=== PATIENT | female | born 1945 | race Caucasian/White ===

== ENCOUNTER → 2016-08-05 | Outpatient (CLI) | payer OTHER, MEDICARE ==
[~2016-08-05] MED LIST: ACET-1311 PO; ASPCH81X PO; ATOR-22 PO; CALC500C70 PO; COEN10CA5 PO; DOXY100C76 PO; LEVO100T7 PO; OMEG10007 PO; TPRSR/50 PO
--- NOTE | 2016-08-05 08:58 | DIAGNOSTIC IMAGING REPORT ---
CHEST 2 VIEWS ROUTINE CLINICAL HISTORY: Pulmonary nodule COMPARISON STUDY: 05/11/2016, CT scan dated 05/11/2016 FINDINGS: There are postsurgical changes of a midline sternotomy. There is no failure. There is no focal pulmonary consolidation. Heart is at the upper limits of normal in size. There is been resolution of previous identified bilateral pleural effusions. An opacity at the level the left cardiophrenic angle, is felt to represent a summation of fat pad and atelectatic change[ IMPRESSION: No active disease in the chest. Electronically signed by: Johnnie Byrd M.D. 08/05/2016 8:56 AM Dictated Date/Time: 08/05/2016 8:55 AM
== END | disposition home or self-care (01) ==
LOC: C.RAD1850 08:47
PROVIDERS: ATTEND Internal Medicine Interventional Cardiology
DX: R91.1 Solitary pulmonary nodule (principal)

== ENCOUNTER → 2016-08-05 | Outpatient (CLI) | payer OTHER, MEDICARE | END | disposition home or self-care (01) | LOC: C.MAMM 07:39 | PROVIDERS: ATTEND Nurse Practitioner Family | DX: Z00.00 Encounter for general adult medical examination without abnormal findings (principal); Z78.0 Asymptomatic menopausal state; M85.851 Other specified disorders of bone density and structure, right thigh; M85.852 Other specified disorders of bone density and structure, left thigh; R91.1 Solitary pulmonary nodule ==

== ENCOUNTER 2016-11-09 18:20 | Emergency (ER) | payer OTHER, MEDICARE ==
[~2016-11-09] VITALS: Ht 162.6 cm; Wt 57.4 kg
[~2016-11-09 18:20] MED LIST changes: -COEN10CA5 PO; -DOXY100C76 PO
[2016-11-09 18:27] VITALS: TEMP 36.9; Ht 162.6 cm; Wt 57.4 kg
[2016-11-09 19:01] LABS: BASO % 0.4 %; BASO ABS # 0.01 K/uL (0-0.2); COMPLETE YES; HEMATOCRIT 43.8 % (37-47); LYMPH % 35.8 %; LYMPH ABS # 1.02 K/uL (1.2-3.4); MEAN CELL VOLUME 89.6 fL (80-100); MEAN CORPUSCULAR HEMOGLOBIN 30.9 pg (25-34); MEAN CORPUSCULAR HGB CONC 34.5 g/dl (32-36); MEAN PLATELET VOLUME 10.3 fL (7.4-10.4); MONO % 9.1 %; NEUT % 54.7 %; PLATELET COUNT 111 K/uL (130-400); RED BLOOD COUNT 4.89 M/uL (4.2-5.4); WHITE BLOOD COUNT 2.85 K/uL (4.8-10.8)
[2016-11-09 19:16] LABS: BUN/CREATININE RATIO 23.1 (10-20); CALCIUM 8.9 mg/dl (8.5-10.1); CREATININE 0.77 mg/dl (0.60-1.20); MAGNESIUM 2.2 mg/dl (1.8-2.4); POTASSIUM 3.4 mmol/L (3.5-5.1)
[2016-11-09 19:19] LABS: ALB/GLOB RATIO 0.9 (0.9-2)
[2016-11-09] MEDS ORDERED: COEN10CA5 PO (19:32)
[2016-11-09 19:34] LABS: URINE APPEARANCE CLEAR (CLEAR); URINE BILIRUBIN NEG (NEG); URINE COLOR DK YELLOW; URINE EPITHELIAL CELL AUTO >30 /lpf (0-5); URINE NITRITE NEG (NEG); URINE SPECIFIC GRAVITY 1.023 (1.000-1.030); UROBILINOGEN NEG (NEG); ZZUR CULT IF INDIC CLEAN CATCH NO
[2016-11-09 19:42] LABS: MANUAL MICROSCOPIC REQUIRED? NO; REVIEW REQ? NO
[2016-11-09] MEDS ORDERED: SODIUM CHLORIDE 0.9% 1000ML 1,000 ML IV STA (19:51)
[2016-11-09 19:53] LABS: LYME DISEASE AB IGG NEG (NEG); LYME DISEASE AB IGM NEG (NEG)
[2016-11-09] MEDS ORDERED: KETOROLAC TROMETHAMINE 30 MG/ML VIAL IV STA (20:06)
[2016-11-09] MEDS ORDERED: DOXYCYCLINE HYCLATE 100 MG CAP PO STA (22:32)
[2016-11-09] MEDS ORDERED: DOXY100C76 PO (23:46)
--- NOTE | 2016-11-09 23:46 | EMERGENCY ROOM VISIT NOTE ---
History Report prepared by Cam: Karissa Harris Under the Supervision of: Dr. Yandy Sanders D.O. First contact with patient: 18:30 Chief Complaint: PAIN (GENERALIZED) Stated Complaint: FLU/TICK BITE,JOINT PAIN History of Present Illness The patient is a 71 year old female who presents to the Emergency Room with complaints of persistent pain starting 4 days ago. She describes her pain as an aching which is present in her bones and muscles all over her body. She took Tylenol to no significant relief. She feels fatigued. She notes that she had a bug bite on her head 2 weeks ago. She had a rash on her forehead. She went to urgent care who said that she did not have a tick bite. She is concerned for Lyme disease. She reports fever and chills. She had an episode of diarrhea today. She has a decreased appetite. She denies any rhinorrhea, sore throat, nausea, vomiting, rash, sores, or swelling. She denies any sick contacts, recent travel, medication changes, or diet changes. She had a triple bypass 6 months ago. She denies any history or family history of rheumatologic disorders. She is on aspirin. Source of History: patient Onset: 4 days ago Position: other (global) Quality: ache Timing: other (persistent) Associated Symptoms: + fevers, + chills, + diarrhea, + fatigue, No sorethroat, No nausea, No vomiting, No rash Note: Pt reports decreased appetite. Pt denies rhinorrhea, swelling. Review of Systems See HPI for pertinent positives & negatives. A total of 10 systems reviewed and were otherwise negative. Past Medical & Surgical Medical Problems: (1) Cough (2) Hypothyroidism Surgical Problems: (1) S/P cholecystectomy (2) S/P triple vessel bypass Family History Diabetes mellitus FHx: cancer Gallbladder disease Heart disease Hypertension Kidney disease Kidney stones Social History Smoking Status: Never Smoker Alcohol Use: none Drug Use: none Marital Status: Housing Status: lives with family Current/Historical Medications Scheduled Aspirin (Aspirin Chewable), 81 MG PO DAILY Calcium/Vitamin D (Os-Dannie 500 Plus D), 1 TAB PO DAILY Coenzyme Q10 (Ubidecarenone) (Co Q 10), Unknown Dose PO QAM Doxycycline Monohydrate (Monodox), 100 MG PO BID Fish Oil (Spivey-3), 1 CAP PO DAILY Levothyroxine Sodium (Levothyroxine Sodium), 100 MCG PO DAILY Metoprolol Succinate (Metoprolol Succinate ER), 50 MG PO DAILY Scheduled PRN Acetaminophen (Tylenol), 650 MG PO Q4H PRN for Pain Allergies Coded Allergies: No Known Allergies (Verified , 11/09/16) Physical Exam Vital Signs Date Time Temp Pulse Resp B/P (MAP) Pulse Ox O2 Delivery O2 Flow Rate FiO2 11/10/16 00:08 69 18 120/72 95 11/09/16 22:21 82 18 137/74 11/09/16 21:28 80 18 130/75 95 Room Air 11/09/16 18:27 36.9 105 20 109/73 96 Room Air Physical Exam GENERAL: alert, well appearing, well nourished, no distress, non-toxic EYE EXAM: normal conjunctiva, PERRL and EOM's grossly intact OROPHARYNX: no exudate, no erythema, lips, buccal mucosa, and tongue normal and mucous membranes are moist NECK: supple, no nuchal rigidity, no adenopathy, non-tender LUNGS: Clear to auscultation. Normal chest wall mechanics, no wheezes rhonchi or rales HEART: no murmurs, S1 normal and S2 normal, no dysrhythmia or ectopy noted on telemetry ABDOMEN: abdomen soft, non-tender, normo-active bowel sounds, no masses, no rebound or guarding. BACK: Back is symmetrical on inspection and there is no deformity, no midline tenderness, no CVA tenderness. SKIN: no rashes and no bruising UPPER EXTREMITIES: upper extremities are grossly normal. LOWER EXTREMITIES: No pitting edema. NEURO EXAM: Normal sensorium, cranial nerves II-XII grossly intact, normal speech, no gross weakness of arms, no gross weakness of legs. Patient with normal range of motion and normal gait. No ataxia. Medical Decision & Procedures Laboratory Results 11/09/16 18:50 Red Blood Count 4.89, Mean Corpuscular Volume 89.6, Mean Corpuscular Hemoglobin 30.9, Mean Corpuscular Hemoglobin Concent 34.5, Mean Platelet Volume 10.3, Neutrophils (%) (Auto) 54.7, Lymphocytes (%) (Auto) 35.8, Monocytes (%) (Auto) 9.1, Eosinophils (%) (Auto) 0.0, Basophils (%) (Auto) 0.4, Neutrophils # (Auto) 1.56, Lymphocytes # (Auto) 1.02, Monocytes # (Auto) 0.26, Eosinophils # (Auto) 0.00, Basophils # (Auto) 0.01 11/09/16 18:50 Test 11/09/16 18:50 11/09/16 19:15 11/09/16 19:25 11/09/16 23:00 White Blood Count 2.85 K/uL (4.8-10.8) Red Blood Count 4.89 M/uL (4.2-5.4) Hemoglobin 15.1 g/dL (12.0-16.0) Hematocrit 43.8 % (37-47) Mean Corpuscular Volume 89.6 fL (80-100) Mean Corpuscular Hemoglobin 30.9 pg (25-34) Mean Corpuscular Hemoglobin Concent 34.5 g/dl (32-36) Platelet Count 111 K/uL (130-400) Mean Platelet Volume 10.3 fL (7.4-10.4) Neutrophils (%) (Auto) 54.7 % Lymphocytes (%) (Auto) 35.8 % Monocytes (%) (Auto) 9.1 % Eosinophils (%) (Auto) 0.0 % Basophils (%) (Auto) 0.4 % Neutrophils # (Auto) 1.56 K/uL (1.4-6.5) Lymphocytes # (Auto) 1.02 K/uL (1.2-3.4) Monocytes # (Auto) 0.26 K/uL (0.11-0.59) Eosinophils # (Auto) 0.00 K/uL (0-0.5) Basophils # (Auto) 0.01 K/uL (0-0.2) RDW Standard Deviation 47.0 fL (36.4-46.3) RDW Coefficient of Variation 14.2 % (11.5-14.5) Immature Granulocyte % (Auto) 0.0 % Immature Granulocyte # (Auto) 0.00 K/uL (0.00-0.02) Erythrocyte Sedimentation Rate 16 mm/hr (0-21) Anion Gap 9.0 mmol/L (3-11) Est Creatinine Clear Calc Drug Dose 57.9 ml/min Estimated GFR () 90.0 Estimated GFR (Non- 77.7 BUN/Creatinine Ratio 23.1 (10-20) Lactic Acid Level 1.2 mmol/L (0.4-2.0) Calcium Level 8.9 mg/dl (8.5-10.1) Magnesium Level 2.2 mg/dl (1.8-2.4) Total Bilirubin 0.6 mg/dl (0.2-1) Aspartate Amino Transf (AST/SGOT) 42 U/L (15-37) Alanine Aminotransferase (ALT/SGPT) 31 U/L (12-78) Alkaline Phosphatase 83 U/L (45-117) Total Protein 7.5 gm/dl (6.4-8.2) Albumin 3.6 gm/dl (3.4-5.0) Globulin 3.9 gm/dl (2.5-4.0) Albumin/Globulin Ratio 0.9 (0.9-2) Lyme Disease IgG Antibody NEG (NEG) Lyme Disease IgM Antibody NEG (NEG) Urine Color DK YELLOW Urine Appearance CLEAR (CLEAR) Urine pH 6.0 (4.5-7.5) Urine Specific [place] 1.023 (1.000-1.030) Urine Protein TRACE (NEG) Urine Glucose (UA) NEG (NEG) Urine Ketones TRACE (NEG) Urine Occult Blood NEG (NEG) Urine Nitrite NEG (NEG) Urine Bilirubin NEG (NEG) Urine Urobilinogen NEG (NEG) Urine Leukocyte Esterase NEG (NEG) Urine WBC (Auto) 1-5 /hpf (0-5) Urine RBC (Auto) 0-4 /hpf (0-4) Urine Hyaline Casts (Auto) 1-5 /lpf (0-5) Urine Epithelial Cells (Auto) >30 /lpf (0-5) Urine Bacteria (Auto) NEG (NEG) Influenza Type A Antigen Neg for Influ A (NEG) Influenza Type B Antigen Neg for Influ B (NEG) Troponin I < 0.015 ng/ml (0-0.045) Laboratory results per my review. Medications Administered Medications (Trade) Dose Ordered Sig/Lexie Route Start Time Stop Time Status Last Admin Dose Admin Sodium Chloride 1,000 ml @ 999 mls/hr Q1H1M STAT IV 11/09/16 19:51 11/09/16 20:51 DC 11/09/16 20:30 999 MLS/HR Ketorolac Tromethamine (Toradol Inj) 30 mg NOW STAT IV 11/09/16 20:06 11/09/16 20:07 DC 11/09/16 20:29 30 MG Doxycycline Hyclate (Vibramycin Cap) 100 mg NOW STAT PO 11/09/16 22:32 11/09/16 22:34 DC 11/09/16 23:34 100 MG ECG Indication: other (fatigue) Rate (beats per minute): 83 Rhythm: sinus rhythm Findings: T-wave inversion (lead 3, aVF, V2, V3, V4, V5), other (normal axis, normal intervals) Comparison ECG Date: 11-May-2016 Change: Changes are new compared to prior. ED Course 1831: The patient was evaluated in room C5. A complete history and physical exam was performed. 1950: NSS 1000 ml @ 999 mls/hr IV. 2005: Toradol Inj 30 mg IV. 2134: I reevaluated the patient. She is resting comfortably. 2231: Vibramycin Cap 100 mg PO. 2335: Upon reevaluation, the patient is feeling better and tolerating PO. I discussed the findings and the treatment plan with the patient. She verbalizes agreement and understanding. She was discharged home. Medical Decision Differential diagnosis: Etiologies such as metabolic, infection, hypo/hyperglycemia, electrolyte abnormalities, cardiac sources, intracerebral event, toxicologic, neurologic, as well as others were entertained. Medication Reconciliation: I attest that I have personally reviewed the patient' s current medication list. Blood pressure screening: Patient was found to have a slightly elevated blood pressure due to circumstances. I do not believe that the patient requires hypertension monitoring. Patient improved here, no evidence of bacteremia/sepsis. Given recent potential bite an endemic area, patient started on doxycycline for potential Lyme. Serology are negative, however discussed with patient may be falsely negative as too early for the test result positive. Advised close follow-up with family doctor to recheck symptoms and possibly repeat test in several weeks. No history of autoimmune or other inflammatory disease, and sedimentation rate negative. Patient with mild leukopenia of unclear etiology. Doubt bacteremia/sepsis. Symptoms not consistent with rhabdomyolysis, no evidence of kidney dysfunction, or thyroid dysfunction. Patient not taking a statin to otherwise explain muscle aches. Discussed with patient possible viral syndrome versus manifestation of Lyme disease. Discussed other differential diagnoses and possible need for additional testing if symptoms persist including rheumatologic evaluation. Discussed with patient symptoms to watch and return for, she verbalized understanding was agreeable with plan. Impression Primary Impression: Myalgia Additional Impression: Arthralgia Scribe Attestation The scribe's documentation has been prepared under my direction and personally reviewed by me in its entirety. I confirm that the note above accurately reflects all work, treatment, procedures, and medical decision making performed by me. Departure Information Dispostion Home / Self-Care Prescriptions Doxycycline Monohydrate (Monodox) 100 Mg Cap 100 MG PO BID for 21 Days, #42 CAP Prov: Yandy Sanders, DO 11/09/16 Referrals Yandy Richardson (PCP) Patient Instructions My [facility] Additional Instructions Please call and follow up with your family doctor this week to recheck your symptoms and condition. Please continue regular medications as prescribed, take the antibiotics as prescribed daily. Please continue to monitor for any changing symptoms including worsening pain, swelling of your joints, fevers or chills, trouble breathing, dizziness, palpitations, vomiting. If you have these or any other new and concerning symptoms, please return the emergency room. Please note that common side effects of this particular antibiotic include sensitivity to light causing redness of the skin as well as severe GI upset/heartburn. Your Lyme tests tonight were negative, however they might be falsely negative this soon after a potential tick bite. Your family doctor can rechecked him again and several weeks. Problem Qualifiers Additional Impression: Arthralgia Joint pain location: unspecified Qualified Codes: M25.50 - Pain in unspecified joint
[2016-11-10 00:08] VITALS: BP 120/72; PULSE 69; O2SAT 95
== END 2016-11-10 00:08 | disposition home or self-care (01) ==
LOC: C.EDB 18:20 → C.EDC 11-10 00:08
DX: M79.1 Myalgia (principal); M25.50 Pain in unspecified joint; R19.7 Diarrhea, unspecified; E03.9 Hypothyroidism, unspecified; Z95.1 Presence of aortocoronary bypass graft; Z90.49 Acquired absence of other specified parts of digestive tract; Z83.3 Family history of diabetes mellitus; Z82.49 Family history of ischemic heart disease and other diseases of the circulatory system; Z84.1 Family history of disorders of kidney and ureter; Z79.82 Long term (current) use of aspirin; Z79.899 Other long term (current) drug therapy

== ENCOUNTER → 2016-11-28 | Outpatient (CLI) | payer OTHER, MEDICARE ==
[~2016-11-28] MED LIST changes: -ATOR-22 PO; +COEN10CA5 PO; +DOXY100C76 PO
[2016-11-28 12:22] LABS: BASO % 1.5 %; BASO ABS # 0.07 K/uL (0-0.2); COMPLETE YES; HEMATOCRIT 39.8 % (37-47); LYMPH % 49.4 %; LYMPH ABS # 2.24 K/uL (1.2-3.4); MEAN CELL VOLUME 92.6 fL (80-100); MEAN CORPUSCULAR HEMOGLOBIN 31.2 pg (25-34); MEAN CORPUSCULAR HGB CONC 33.7 g/dl (32-36); MEAN PLATELET VOLUME 10.6 fL (7.4-10.4); MONO % 9.5 %; NEUT % 35.6 %; PLATELET COUNT 220 K/uL (130-400); WHITE BLOOD COUNT 4.53 K/uL (4.8-10.8)
[2016-11-28 12:49] LABS: BLOOD UREA NITROGEN 16 mg/dl (7-18); CALCIUM 9.1 mg/dl (8.5-10.1); CARBON DIOXIDE 25 mmol/L (21-32); CHLORIDE 109 mmol/L (98-107); CREATININE 0.68 mg/dl (0.60-1.20); GLUCOSE 94 mg/dl (70-99); POTASSIUM 4.1 mmol/L (3.5-5.1); SODIUM 143 mmol/L (136-145)
[2016-11-28 13:03] LABS: CHOLESTEROL 262 mg/dl (0-200); CHOLESTEROL/HDL RATIO 4.3; HDL CHOLESTEROL 61 mg/dl; LDL CHOLESTEROL CALCULATED 177 mg/dl; TRIGLYCERIDES 120 mg/dl (0-150); VERY LOW DENSITY LIPOPROT CALC 24 mg/dl
[2016-11-28 13:36] LABS: LYME DISEASE AB IGM NEG (NEG)
[2016-11-28 13:40] LABS: LYME DISEASE AB IGG POS (NEG)
== END | disposition home or self-care (01) ==
LOC: C.LABPVFM 07:18
PROVIDERS: ATTEND Nurse Practitioner Family
DX: R53.83 Other fatigue (principal); D72.819 Decreased white blood cell count, unspecified; I10 Essential (primary) hypertension; E78.5 Hyperlipidemia, unspecified; E03.9 Hypothyroidism, unspecified

== ENCOUNTER → 2017-06-18 | Outpatient (CLI) | payer OTHER, MEDICARE ==
[~2017-06-18] MED LIST changes: -DOXY100C76 PO
[2017-06-18 13:35] LABS: BLOOD UREA NITROGEN 21 mg/dl (7-18); CREATININE 0.77 mg/dl (0.60-1.20); GLUCOSE 100 mg/dl (70-99)
[2017-06-18 13:36] LABS: ALBUMIN 3.7 gm/dl (3.4-5.0); ALT/SGPT 24 U/L (12-78); CALCIUM 9.2 mg/dl (8.5-10.1); CARBON DIOXIDE 28 mmol/L (21-32); CHOLESTEROL 253 mg/dl (0-200); SODIUM 139 mmol/L (136-145)
[2017-06-18 13:40] LABS: ALKALINE PHOSPHATASE 67 U/L (45-117); AST/SGOT 23 U/L (15-37); LDL CHOLESTEROL CALCULATED 166 mg/dl; TOTAL PROTEIN 7.5 gm/dl (6.4-8.2)
== END | disposition home or self-care (01) ==
LOC: C.LABPVFM 08:01
PROVIDERS: ATTEND Internal Medicine Interventional Cardiology
DX: I25.10 Atherosclerotic heart disease of native coronary artery without angina pectoris (principal); E78.5 Hyperlipidemia, unspecified

== ENCOUNTER → 2017-08-20 | Outpatient (CLI) | payer OTHER, MEDICARE ==
--- NOTE | 2017-08-20 09:38 | DIAGNOSTIC IMAGING REPORT ---
LEFT SHOULDER 3 VIEWS HISTORY: LEFT SHOULDER PAIN COMPARISON: None. FINDINGS: There is no fracture or dislocation. Calcific densities at the distal supraspinatus. Poststernotomy changes. The left clavicle is intact. Mild AC joint arthrosis. Mild cartilage space narrowing at the glenohumeral joint. IMPRESSION: 1. No fracture or dislocation within the left shoulder. 2. Supraspinatus calcific tendinitis. Electronically signed by: Hilario Hoyos M.D. 08/20/2017 9:37 AM Dictated Date/Time: 08/20/2017 9:35 AM
== END | disposition home or self-care (01) ==
LOC: C.RADPV 09:14
PROVIDERS: ATTEND Nurse Practitioner Family
DX: M75.32 Calcific tendinitis of left shoulder (principal)

== ENCOUNTER → 2017-09-17 | Outpatient (CLI) | payer OTHER, MEDICARE ==
--- NOTE | 2017-09-18 08:04 | MAMMOGRAPHY REPORT ---
BILATERAL DIGITAL SCREENING MAMMOGRAM TOMOSYNTHESIS WITH CAD: 09/17/2017 CLINICAL HISTORY: Routine screening. Patient has no complaints. TECHNIQUE: Breast tomosynthesis in addition to standard 2D mammography was performed. Current study was also evaluated with a Computer Aided Detection (CAD) system. COMPARISON: Comparison is made to exams dated: 09/27/2015 mammogram, 09/25/2014 mammogram, 08/18/2013 ma mmogram - [facility], 03/01/2009, and 02/23/2007. BREAST COMPOSITION: There are scattered areas of fibroglandular density in both breasts. FINDINGS: No suspicious masses, calcifications, or areas of architectural distortion are noted in ei ther breast. There has been no significant interval change compared to prior exams. IMPRESSION: ACR BI-RADS CATEGORY 1: NEGATIVE There is no mammographic evidence of malignancy. A 1 year screening mammogram is recommended. The pa tient will receive written notification of the results. Approximately 10% of breast cancers are not detected with mammography. A negative mammographic report should not delay biopsy if a clinically suggestive mass is present. Judith Kinsey M.D. ah/:09/17/2017 12:18:58 Ring Facer: Paula NGUYEN(R)(M), [facility] letter sent: Normal 1/2 BI-RADS Code: ACR BI-RADS Category 1: Negative
== END | disposition home or self-care (01) ==
LOC: C.MAMM 08:14
PROVIDERS: ATTEND Obstetrics & Gynecology
DX: Z12.31 Encounter for screening mammogram for malignant neoplasm of breast (principal)

== ENCOUNTER 2022-03-23 02:12 | Observation (INO) ==
[2022-03-23] MEDS ORDERED: ASPIRIN CHEW 324 MG PO STA (02:40)
--- NOTE | 2022-03-23 02:43 | Emergency Department Note ---
History of Present Illness General Chief complaint: Cardiac Assessment Stated complaint: HEAVYNESS ON HEART/CHEST Time Seen by Provider: 03/23/22 02:19 History of Present Illness Maximum Pain Intensity: 2 76-year-old female presents emergency department with intermittent description of chest pain that started on Thursday evening and then started again tonight described as chest heaviness that radiated to her left arm. Patient did speak with Dr. Kunz this week and was told to come to the office next week or to return to the emergency department for any increased pain. Patient denies any shortness of breath nausea vomiting diaphoresis. Patient denies neck back or jaw pain. There are no other mitigating or alleviating factors. Patient takes a daily aspirin. Home Medications Medication Instructions Recorded Confirmed Type calcium carbonate 600 mg calcium 600 mg PO QAM 10/17/18 03/23/22 History (1,500 mg) tablet (Calcium) cholecalciferol (vitamin D3) 50 2,000 units PO QAM 10/17/18 03/23/22 History mcg (2,000 unit) capsule coenzyme Q10 100 mg capsule 100 mg PO QAM 10/17/18 03/23/22 History multivitamin 1 tab PO QAM 10/17/18 03/23/22 History aspirin 81 mg tablet,delayed 81 mg PO QAM 05/02/19 03/23/22 History release (Karyn Low Dose Aspirin) hydrocortisone 2.5 % topical cream 1 applic AK DAILY PRN hemorrhoids 06/12/20 03/23/22 Rx with perineal applicator #30 grams (Proctosol HC) levothyroxine 100 mcg tablet 100 mcg PO DAILY #90 tabs 09/09/21 03/23/22 Rx (Synthroid) metoprolol succinate 50 mg 50 mg PO DAILY #180 tabs 12/30/21 03/23/22 Rx tablet,extended release 24 hr Allergies Allergy/AdvReac Type Severity Reaction Status Date / Time No Known Drug Allergies Allergy Unknown Verified 03/23/22 02:38 Past Med/Surg History Medical History Hearing loss in left ear Hypertension Hypothyroidism (~10/01/21) Kidney stones Left sided abdominal pain Never smoker Osteoarthritis Sensorineural hearing loss (SNHL) of left ear with restricted hearing of right ear Surgical History History of bilateral tubal ligation History of cardiac cath 2016 no stents--90% blockage sent to [facility] for open heart History of cholecystectomy History of colonoscopy History of coronary artery bypass graft x 3 05/06/2017 @ [facility]--follows with Dr. Kunz History of partial hysterectomy History of tonsillectomy History of tooth extraction all teeth Family History Sister Ovarian cancer Myocardial infarction Family history of diabetes mellitus Family history of esophageal cancer Mother Family history of diabetes mellitus Father Family history of diabetes mellitus Brother Family history of diabetes mellitus Sister Family history of diabetes mellitus Sister Family history of diabetes mellitus Other Asthma Cancer Heart disease Hypertension No family history of adverse response to anesthesia No family history of bleeding disorder Stroke Denies family history of Prostate cancer Breast cancer Colorectal cancer Social History Smoking Status: Never smoker Second Hand Exposure: Yes (work environment); Hx Alcohol Use: No Hx Substance Use: No Preferred Language: Danish Communication Ability: Effective Visual Impairment: No Limitations Hearing Ability: Normal Hauling Contractor Required: No Beliefs That Will Affect Care: None marital status: Current Living Situation: Spouse and Family Current Living Situation Comment: Lives with and foster current occupational status: retired 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 Feels Safe at Home: Yes caffeine: Yes Dental Care, Regularly: Yes Physical Activity Frequency: Daily Seatbelt Use: always Sunscreen Use: No Assistive Devices: Denture - Upper, Denture - Lower and Glasses Review of Systems A total of 10 systems reviewed and were otherwise negative Constitutional: no fever Respiratory: no cough Cardiovascular: + chest pain Gastrointestinal: no abdominal pain Physical Exam Vital Signs Vital Signs - 24 hr 03/23/22 02:17 03/23/22 02:39 03/23/22 02:39 Temperature 36.4 C L Temperature Source Temporal Artery Scan Pulse Rate 94 H Pulse Rate [Apical] 65 Pulse Rhythm [Apical] Regular Respiratory Rate 18 17 Respiratory Depth Normal Blood Pressure 211/106 H Blood Pressure [Right Arm] 175/84 H Blood Pressure Mean 141 Blood Pressure Mean [Right Arm] 114 Pulse Oximetry 97 95 Oxygen Delivery Method Room Air Room Air Room Air Sepsis Recent Fever Within 48 Hours No Sepsis New/Unexplained Change in Mental Status No Sepsis Action Taken by Nursing No Action Required 03/23/22 02:39 03/23/22 03:03 Temperature Temperature Source Pulse Rate Pulse Rate [Apical] 62 Pulse Rhythm [Apical] Respiratory Rate 15 Respiratory Depth Blood Pressure Blood Pressure [Right Arm] 134/65 Blood Pressure Mean Blood Pressure Mean [Right Arm] 88 Pulse Oximetry 95 Oxygen Delivery Method Room Air Sepsis Recent Fever Within 48 Hours Sepsis New/Unexplained Change in Mental Status Sepsis Action Taken by Nursing GENERAL: Patient is awake alert in no acute distress patient is resting comfortably and showing no signs of anxiety EYES: The conjunctivae are clear. The pupils are round and reactive. EARS, NOSE, MOUTH AND THROAT: The nose is without any evidence of any deformity. Mucous membranes are moist. Tongue is midline. NECK: The neck is nontender and supple. RESPIRATORY: Normal respiratory effort is noted there is no evidence of wheezing rhonchi or rales CARDIOVASCULAR: Regular rate and rhythm noted there no murmurs rubs or gallops normal S1 normal S2. GASTROINTESTINAL: The abdomen is soft. Abdomen is nontender. PELVIS: The Pelvis is stable. No tenderness to palpation is noted. BACK: No midline tenderness or or step-off noted range of motion in flexion extension as well as rotation no signs of muscle spasm noted MUSCULOSKELETAL/EXTREMITIES: There is no evidence of gross deformity full range of motion is noted in the hips and shoulders. SKIN: There is no obvious evidence of any rash. There are no petechiae, pallor or cyanosis noted. NEUROLOGIC: Patient is awake alert and oriented x3 strength is symmetric Course Reevaluation(s) Reevaluation #1: Resting in no distress on repeat examination no current chest pain Time: 03:52 [facility] Time: 03:53 Administered Medications Discontinued Medications Aspirin (Aspirin Chew 324 Mg) 324 mg PO NOW STA Stop: 03/23/22 02:41 Last Admin: 03/23/22 02:42 Dose: 324 mg Documented By: FIDEL Medical Decision Making Medical Records Attestation: I reviewed the patient's medical records. Home Medications Current Medication List: was personally reviewed by me Laboratory Data Attestation: I reviewed the patient's lab results. Result diagrams: 03/23/22 02:29 03/23/22 02:29 Lab Results 03/23/22 03/23/22 03/23/22 Range/Units 02:29 02:29 02:29 WBC 9.28 (4.8-10.8) K/ul RBC 4.28 (3.93-5.22) M/uL Hgb 13.5 (12.0-16.0) g/dl Hct 39.0 (34.1-44.9) % MCV 91.1 (80.0-100.0) fL MCH 31.5 (25.0-34.0) pg MCHC 34.6 (32.0-36.0) g/dL RDW Std Deviation 43.5 (36.4-46.3) fL RDW Coeff of Rah 13.1 (11.5-14.5) % Plt Count 257 (130-400) K/uL MPV 9.8 (9.4-12.3) fL Immature Gran % (Auto) 0.3 % Neut % (Auto) 46.7 % Lymph % (Auto) 37.8 % [place] % (Auto) 11.3 % Eos % (Auto) 3.3 % Baso % (Auto) 0.6 % Neut # (Auto) 4.32 (1.4-6.5) K/uL Lymph # (Auto) 3.51 H (1.2-3.4) K/uL [place] # (Auto) 1.05 H (0.24-0.82) K/uL Eos # (Auto) 0.31 (0-0.50) K/uL Baso # (Auto) 0.06 (0-0.2) K/uL Immature Gran # (Auto) 0.03 H (0.00-0.02) K/uL PT 10.3 (9.0-12.0) Seconds INR 1.0 (0.9-1.1) APTT 24.5 (21.0-31.0) Seconds PTT Ratio 0.9 Sodium 138 (136-145) mmol/L Potassium 3.8 (3.5-5.1) mmol/L Chloride 103 (98-107) mmol/L Carbon Dioxide 27 (21-32) mmol/L Anion Gap 8 (3-11) BUN 20 (6-23) mg/dl Creatinine 0.75 (0.6-1.2) mg/dl Est Cr Clr Drug Dosing 55.1 ml/min Est GFR ( Amer) 89.7 ml/min Est GFR (Non-Af Amer) 77.4 ml/min BUN/Creatinine Ratio 26.7 H (10-20) Glucose 124 H (70-99(Fasting)) mg/dl Calcium 9.1 (8.5-10.1) mg/dl Total Bilirubin 0.5 (0.2-1.0) mg/dl AST 19 (13-39) U/L ALT 18 (7-52) U/L Alkaline Phosphatase 66 (34-104) U/L Troponin I High Sens 6.9 (0-14) pg/ml Total Protein 6.8 (6.0-8.3) gm/dl Albumin 3.9 (3.4-5.0) gm/dl Globulin 2.9 (2.5-4.0) gm/dl Albumin/Globulin Ratio 1.3 (0.9-2) Lipase 65 (11-82) U/L Imaging Data Attestation: I personally reviewed and interpreted this imaging study as follows: My Impression: Chest x-ray interpreted by me negative for infiltrate ECG Data Attestation: I personally reviewed and interpreted this ECG as follows: Additional Comments: EKG interpreted by me normal sinus rhythm rate of 72 Q waves in lead III and aVF no obvious ST segment elevation or depression normal intervals normal axis MDM Narrative Medical decision making differential diagnosis angina, unstable angina, acute PA, acute coronary syndrome, musculoskeletal chest pain. Plan is to check cardiac evaluation. Patient was evaluated for chest pain I doubt the patient currently has acute coronary syndrome however has significant risk factors and history for coronary artery disease. I do not suspect pulmonary embolism or thoracic cardiac aortic dissection. Patient was given aspirin. Remained in stable condition without significant chest pain. Patient will be admitted for further evaluation Impression & Plan Chest pain Discharge Plan Visit Data Chief Complaint: Cardiac Assessment Stated Complaint: HEAVYNESS ON HEART/CHEST ED Provider: Stephan Cho Discharge Problem: Chest pain Patient Disposition: Being Evaluated by Hospitalist Forms Stand Alone Forms: My [facility] Prescriptions Prescriptions: No Action levothyroxine [Synthroid] 100 mcg tablet 100 mcg PO DAILY Qty: 90 3RF Rx Instructions: brand necessary metoprolol succinate 50 mg tablet extended release 24 hr 50 mg PO DAILY Qty: 180 3RF calcium carbonate [Calcium 600] 600 mg calcium (1,500 mg) tablet 600 mg PO QAM multivitamin tablet 1 tab PO QAM cholecalciferol (vitamin D3) 2,000 unit capsule 2,000 units PO QAM coenzyme Q10 100 mg capsule 100 mg PO QAM hydrocortisone [Proctosol HC] 2.5 % cream with perineal applicator 1 applic [place] DAILY PRN (Reason: hemorrhoids) Qty: 30 2RF Rx Instructions: use for 5 days at a time as needed aspirin [Karyn Low Dose Aspirin] 81 mg Tablet,Delayed Release (Dr/Ec) 81 mg PO QAM Referrals Referrals: Aundrea Oswald CRNP [Primary Care Provider] -
[2022-03-23 02:48] LABS: Basophils # (auto) 0.06 K/uL (0-0.2); Basophils % (auto) 0.6 %; Eosinophils # (auto) 0.31 K/uL (0-0.50); Eosinophils % (auto) 3.3 %; Hemoglobin 13.5 g/dl (12.0-16.0); Immature Granulocytes # (auto) 0.03 K/uL (0.00-0.02); Immature Granulocytes % (auto) 0.3 %; Lymphocytes # (auto) 3.51 K/uL (1.2-3.4); Lymphocytes % (auto) 37.8 %; Mean Corpuscular Hemoglobin 31.5 pg (25.0-34.0); Mean Corpuscular Hgb Conc 34.6 g/dL (32.0-36.0); Mean Corpuscular Volume 91.1 fL (80.0-100.0); Mean Platelet Volume 9.8 fL (9.4-12.3); Monocytes # (auto) 1.05 K/uL (0.24-0.82); Monocytes % (auto) 11.3 %; Neutrophils # (auto) 4.32 K/uL (1.4-6.5); Neutrophils % (auto) 46.7 %; Platelet Count 257 K/uL (130-400); RDW Coefficient of Variation 13.1 % (11.5-14.5); RDW Standard Deviation 43.5 fL (36.4-46.3); Red Blood Count 4.28 M/uL (3.93-5.22); White Blood Count 9.28 K/ul (4.8-10.8)
[2022-03-23 03:13] LABS: Albumin Globulin Ratio 1.3 (0.9-2); Albumin Level 3.9 gm/dl (3.4-5.0); BUN Creatinine Ratio 26.7 (10-20); Bilirubin,Total 0.5 mg/dl (0.2-1.0); Calcium 9.1 mg/dl (8.5-10.1); Creatinine Clr Calc Pharmacy 55.1 ml/min; Est GFR (African American) 89.7 ml/min; Est GFR (Non-African American) 77.4 ml/min; Globulin 2.9 gm/dl (2.5-4.0); Partial Thromboplastin Ratio 0.9; Partial Thromboplastin Time 24.5 Seconds (21.0-31.0); Potassium 3.8 mmol/L (3.5-5.1); Prothrombin Time 10.3 Seconds (9.0-12.0); Total Protein 6.8 gm/dl (6.0-8.3)
[2022-03-23 03:14] LABS: Troponin I High Sensitivity 6.9 pg/ml (0-14)
--- NOTE | 2022-03-23 04:39 | History & Physical Report ---
Date of Service March 23, 2022 Assessment & Plan (1) Chest pain: Plan: 76yo female with CAD presenting with chest heaviness. Patient had a fairly severe episode of epigastric discomfort and diaphoresis on 03/19 which resolved spontaneously. Episode tonight with some substernal chest tightness, pressure and some dizziness. EKG with inferior q waves. Troponin x 2 is unremarkable -Telemetry monitoring -Trend Troponin -Cardiology consultation appreciated Continue home medications, ASA, Metoprolol (2) Hypertension: Plan: Blood pressure elevated, 165/68 -Continue metoprolol -Monitor (3) Hypothyroidism: Plan: Chronic. TSH within normal limits at 1.727 -Continue Synthroid History of Present Illness Chief Complaint: chest pain Primary Care Provider: MADDY Chappell Erika Howard is a 76yo female with history of HTN, CAD s/p CABG x 3V presenting with chest pain. Patient had an acute episode of epigastric discomfort on 03/19/22 - severe epigastric pain with nausea and diaphoresis. Her pain ultimately resolved on its own. She contacted Dr. Kunz from Cardiology on 03/21/22 and was instructed to come to the ER if she should experience any new symptoms. She is scheduled to see him on 03/24/22. Patient was doing some work this evening and got dizzy and lightheaded. She laid down and felt some pressure in her chest. Presently feels well with no complaints. ER Course: ASA 324mg Allergies Allergy/AdvReac Type Severity Reaction Status Date / Time No Known Drug Allergies Allergy Unknown Verified 03/23/22 02:38 Home Medications Medication Instructions Recorded Confirmed Type calcium carbonate 600 mg calcium 600 mg PO QAM 10/17/18 03/23/22 History (1,500 mg) tablet (Calcium) cholecalciferol (vitamin D3) 50 2,000 units PO QAM 10/17/18 03/23/22 History mcg (2,000 unit) capsule coenzyme Q10 100 mg capsule 100 mg PO QAM 10/17/18 03/23/22 History multivitamin 1 tab PO QAM 10/17/18 03/23/22 History aspirin 81 mg tablet,delayed 81 mg PO QAM 05/02/19 03/23/22 History release (Karyn Low Dose Aspirin) hydrocortisone 2.5 % topical cream 1 applic LA DAILY PRN hemorrhoids 06/12/20 03/23/22 Rx with perineal applicator #30 grams (Proctosol HC) levothyroxine 100 mcg tablet 100 mcg PO DAILY #90 tabs 09/09/21 03/23/22 Rx (Synthroid) metoprolol succinate 50 mg 50 mg PO DAILY #180 tabs 12/30/21 03/23/22 Rx tablet,extended release 24 hr Past Med/Surg History Medical History Hearing loss in left ear Hypertension Hypothyroidism (~10/01/21) Kidney stones Left sided abdominal pain Never smoker Osteoarthritis Sensorineural hearing loss (SNHL) of left ear with restricted hearing of right ear Surgical History History of bilateral tubal ligation History of cardiac cath 2016 no stents--90% blockage sent to [facility] [place] for open heart History of cholecystectomy History of colonoscopy History of coronary artery bypass graft x 3 05/06/2017 @ [facility] [place]--follows with Dr. Kunz History of partial hysterectomy History of tonsillectomy History of tooth extraction all teeth Family History Sister Ovarian cancer Myocardial infarction Family history of diabetes mellitus Family history of esophageal cancer Mother Family history of diabetes mellitus Father Family history of diabetes mellitus Brother Family history of diabetes mellitus Sister Family history of diabetes mellitus Sister Family history of diabetes mellitus Other Asthma Cancer Heart disease Hypertension No family history of adverse response to anesthesia No family history of bleeding disorder Stroke Denies family history of Prostate cancer Breast cancer Colorectal cancer Social History Smoking Status: Never smoker Second Hand Exposure: Yes (work environment); Hx Alcohol Use: No Hx Substance Use: No Preferred Language: Setswana Communication Ability: Effective Visual Impairment: No Limitations Hearing Ability: Normal Squeegee Finisher Required: No Beliefs That Will Affect Care: None marital status: Current Living Situation: Spouse and Family Current Living Situation Comment: Lives with and foster current occupational status: retired 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 Feels Safe at Home: Yes caffeine: Yes Dental Care, Regularly: Yes Physical Activity Frequency: Daily Seatbelt Use: always Sunscreen Use: No Assistive Devices: Denture - Upper, Denture - Lower and Glasses Review of Systems Review of Systems: All systems reviewed & are unremarkable except as noted in HPI & below Physical Exam Physical Exam: General: patient resting comfortably, NAD, non-toxic in appearance, AA&O x 4 Skin: warm, dry, intact, no rashes or lesions HEENT: NC/AT, PERRL, EOMI, anicteric sclera, conjunctiva without injection, external ear normal to inspection and nontender, nares patent, moist mucus membranes, dentition intact, no oropharyngeal lesions, neck supple, trachea midline, no LAD, no thyromegaly, no JVD Heart: +S1/S2, regular, no m/r/g Lungs: equal air entry bilaterally, no rales/rhonchi/wheezes Abd: +BS, soft, NT/ND, no masses/organomegaly/ascites Ext: warm, 2+ pulses in UE/LE bilaterally, no clubbing/cyanosis or edema Neuro: nonfocal, patient AA&O x 4, speech intact, no facial droop, moving all extremities on command with equal strength 5/5 Results & Data Results & Data ([facility]) Vital Signs (Past 12 Hours) Vital Signs Temp Pulse Pulse Resp BP BP Pulse Ox 03/23/22 03:03 62 15 134/65 95 03/23/22 02:39 03/23/22 02:39 65 17 175/84 H 95 03/23/22 02:39 03/23/22 02:17 36.4 C L 94 H 18 211/106 H 97 O2 Del Method 03/23/22 03:03 03/23/22 02:39 Room Air 03/23/22 02:39 Room Air 03/23/22 02:39 Room Air 03/23/22 02:17 Room Air Laboratory Results Laboratory Results WBC 9.28 K/ul (4.8-10.8) 03/23/22 02:29 RBC 4.28 M/uL (3.93-5.22) 03/23/22 02:29 Hgb 13.5 g/dl (12.0-16.0) 03/23/22 02:29 Hct 39.0 % (34.1-44.9) 03/23/22 02:29 MCV 91.1 fL (80.0-100.0) 03/23/22 02:29 MCH 31.5 pg (25.0-34.0) 03/23/22 02: MCHC 34.6 g/dL (32.0-36.0) 03/23/22 02: RDW Std Deviation 43.5 fL (36.4-46.3) 03/23/22 02: RDW Coeff of Rah 13.1 % (11.5-14.5) 03/23/22 02: Plt Count 257 K/uL (130-400) 03/23/22 02: MPV 9.8 fL (9.4-12.3) 03/23/22 02: Immature Gran % (Auto) 0.3 % 03/23/22 02: Neut % (Auto) 46.7 % 03/23/22 02: Lymph % (Auto) 37.8 % 03/23/22 02: [place] % (Auto) 11.3 % 03/23/22 02: Eos % (Auto) 3.3 % 03/23/22 02: Baso % (Auto) 0.6 % 03/23/22 02: Neut # (Auto) 4.32 K/uL (1.4-6.5) 03/23/22 02: Lymph # (Auto) 3.51 K/uL (1.2-3.4) H 03/23/22 02: [place] # (Auto) 1.05 K/uL (0.24-0.82) H 03/23/22 02: Eos # (Auto) 0.31 K/uL (0-0.50) 03/23/22 02: Baso # (Auto) 0.06 K/uL (0-0.2) 03/23/22 02: Immature Gran # (Auto) 0.03 K/uL (0.00-0.02) H 03/23/22 02: PT 10.3 Seconds (9.0-12.0) 03/23/22 02: INR 1.0 (0.9-1.1) 03/23/22 02: APTT 24.5 Seconds (21.0-31.0) 03/23/22 02: PTT Ratio 0.9 03/23/22 02: Sodium 138 mmol/L (136-145) 03/23/22 02:29 Potassium 3.8 mmol/L (3.5-5.1) 03/23/22 02:29 Chloride 103 mmol/L (98-107) 03/23/22 02:29 Carbon Dioxide 27 mmol/L (21-32) 03/23/22 02:29 Anion Gap 8 (3-11) 03/23/22 02:29 BUN 20 mg/dl (6-23) 03/23/22 02:29 Creatinine 0.75 mg/dl (0.6-1.2) 03/23/22 02:29 Est Cr Clr Drug Dosing 55.1 ml/min 03/23/22 02:29 Est GFR ( Amer) 89.7 ml/min 03/23/22 02:29 Est GFR (Non-Af Amer) 77.4 ml/min 03/23/22 02:29 BUN/Creatinine Ratio 26.7 (10-20) H 03/23/22 02:29 Glucose 124 mg/dl (70-99(Fasting)) H 03/23/22 02:29 Calcium 9.1 mg/dl (8.5-10.1) 03/23/22 02:29 Total Bilirubin 0.5 mg/dl (0.2-1.0) 03/23/22 02:29 AST 19 U/L (13-39) 03/23/22 02:29 ALT 18 U/L (7-52) 03/23/22 02:29 Alkaline Phosphatase 66 U/L (34-104) 03/23/22 02:29 Troponin I High Sens 7.1 pg/ml (0-14) 03/23/22 04:15 Total Protein 6.8 gm/dl (6.0-8.3) 03/23/22 02:29 Albumin 3.9 gm/dl (3.4-5.0) 03/23/22 02:29 Globulin 2.9 gm/dl (2.5-4.0) 03/23/22 02:29 Albumin/Globulin Ratio 1.3 (0.9-2) 03/23/22 02:29 Lipase 65 U/L (11-82) 03/23/22 02:29 Diagnostic Findings CXR with sternotomy wires in place, no infiltrate ECG Additional Comments: NSR at 72, q waves in II, III and aVF Code Status & VTE Plan VTE Prophylaxis Plan VTE Prophylaxis will be ordered: Yes PG Care Time/CCT Total # of Minutes Spent Total Time Spent with Patient: Total time spent is greater than 50% in coordination of care (as documented) at patient's floor/unit and/or counseling patient: Coding Level of Care Code INT OBSERVATION CARE 50M LVL 2 Diagnoses Chest pain R07.9 Hypertension I10 Hypertension type: essential hypertension Hypothyroidism E03.9 Hypothyroidism type: unspecified (1) Hypertension Hypertension type: essential hypertension Qualified Code(s): I10 - Essential (primary) hypertension (2) Hypothyroidism Hypothyroidism type: unspecified Qualified Code(s): E03.9 - Hypothyroidism, unspecified
[2022-03-23] MEDS ORDERED: ACETAMINOPHEN 325 MG TAB PO PRN (07:33)
[2022-03-23] MEDS ORDERED: ONDANSETRON INJ 2 MG/ML 2 ML VIAL IV PRN (07:33)
[2022-03-23] MEDS ORDERED: LEVOTHYROXINE SODIUM 100 MCG TABLET PO SCH (07:45)
--- NOTE | 2022-03-23 08:41 | XRay Report ---
XR chest 1V portable CLINICAL HISTORY: Atypical chest pain. COMPARISON STUDY: Chest radiograph August 19, 2021. FINDINGS: Lung volumes are normal. Lungs are clear. There is no pneumothorax or pleural effusion. Car diac size is stable. There are median sternotomy wires and mediastinal surgical clips. Mediastinal co ntours are normal. There is no evidence for pulmonary edema. IMPRESSION: No acute cardiopulmonary findings. No change in appearance of the chest. ACT 112: Negative or not required by law. Electronically signed by: [place] M.D. 03/23/2022 8:40 AM
[2022-03-23] MEDS ORDERED: ASPIRIN 81 MG ECTAB PO SCH (09:00)
[2022-03-23] MEDS ORDERED: METOPROLOL SUCC 50MG EXT REL TAB PO SCH (09:00)
--- NOTE | 2022-03-23 12:40 | Cardiology Consultation ---
Date of Consultation March 23, 2022 History of Present Illness Attending Physician: Clary Sierra MD History of Present Illness Patient was admitted to the hospital with chest discomfort which she described in her chest her blood pressure was also 211 mmHg systolic. She has had a longstanding intolerance of medications. She had a stress test a year ago that was nonischemic. She had epigastric pain on Thursday for which she then got diaphoretic with it. This was not her typical angina. She feels well today and notes she feels like she could do what ever she wanted. She appears in no distress. She has any palpitations or fluttering. She has any lightheadedness or dizziness. She stopped her losartan that she was supposed to be on as an outpatient due to arthralgias. It sounds like she has had some intolerance to amlodipine but cannot tell me what it is. And she is unsure of what her other drug intolerances are. She has no lower extremity edema PND orthopnea. She has a cough fevers chills sweats. Her appetite and weight are stable. The rest of her review of systems otherwise negative Chest x-ray was negative upon admission Allergies Allergy/AdvReac Type Severity Reaction Status Date / Time No Known Drug Allergies Allergy Unknown Verified 03/23/22 02:38 Home Medications Medication Instructions Recorded Confirmed Type calcium carbonate 600 mg calcium 600 mg PO QAM 10/17/18 03/23/22 History (1,500 mg) tablet (Calcium) cholecalciferol (vitamin D3) 50 2,000 units PO QAM 10/17/18 03/23/22 History mcg (2,000 unit) capsule coenzyme Q10 100 mg capsule 100 mg PO QAM 10/17/18 03/23/22 History multivitamin 1 tab PO QAM 10/17/18 03/23/22 History aspirin 81 mg tablet,delayed 81 mg PO QAM 05/02/19 03/23/22 History release (Karyn Low Dose Aspirin) hydrocortisone 2.5 % topical cream 1 applic NM DAILY PRN hemorrhoids 06/12/20 03/23/22 Rx with perineal applicator #30 grams (Proctosol HC) levothyroxine 100 mcg tablet 100 mcg PO DAILY #90 tabs 09/09/21 03/23/22 Rx (Synthroid) metoprolol succinate 50 mg 50 mg PO DAILY #180 tabs 12/30/21 03/23/22 Rx tablet,extended release 24 hr Patient History Medical History Hearing loss in left ear Hypertension Hypothyroidism (~10/01/21) Kidney stones Left sided abdominal pain Never smoker Osteoarthritis Sensorineural hearing loss (SNHL) of left ear with restricted hearing of right ear Surgical History History of bilateral tubal ligation History of cardiac cath 2016 no stents--90% block[place] [facility] [place] History of cholecystectomy History of colonoscopy History of coronary artery bypass graft x 3 05/06/2017 [place] [facility] [place] Dr. Kunz History of partial hysterectomy History of tonsillectomy History of tooth extraction all teeth Family History Sister Ovarian cancer Myocardial infarction Family history of diabetes mellitus Family history of esophageal cancer Mother Family history of diabetes mellitus Father Family history of diabetes mellitus Brother Family history of diabetes mellitus Sister Family history of diabetes mellitus Sister Family history of diabetes mellitus Other Asthma Cancer Heart disease Hypertension No family history of adverse response to anesthesia No family history of bleeding disorder Stroke Denies family history of Prostate cancer Breast cancer Colorectal cancer Social History Smoking Status: Never smoker Second Hand Exposure: Yes (From Work); Hx Alcohol Use: No Hx Substance Use: No Preferred Language: Mexican Communication Ability: Effective Visual Impairment: No Limitations Hearing Ability: Normal Air Conditioning Mechanic Required: No Beliefs That Will Affect Care: None marital status: Current Living Situation: Spouse Current Living Situation Comment: Lives with and foster current occupational status: retired 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 Feels Safe at Home: Yes caffeine: Yes Dental Care, Regularly: Yes Physical Activity Frequency: Daily Seatbelt Use: always Sunscreen Use: No Assistive Devices: Denture - Upper, Denture - Lower and Glasses Results & Data ([facility]) Vital Signs (Past 12 Hours) Vital Signs Temp Pulse Pulse Resp BP BP BP 03/23/22 11:29 37.0 C 56 L 18 145/54 H 03/23/22 08:03 57 L 03/23/22 07:34 36.5 C 63 20 169/75 H 03/23/22 07:05 57 L 20 144/69 H 03/23/22 06:00 58 L 16 149/76 H 03/23/22 04:00 66 16 165/68 H 03/23/22 03:03 62 15 134/65 03/23/22 02:39 03/23/22 02:39 65 17 175/84 H 03/23/22 02:39 03/23/22 02:17 36.4 C L 94 H 18 211/106 H Pulse Ox O2 Del Method 03/23/22 11:29 96 Room Air 03/23/22 08:03 03/23/22 07:34 96 Room Air 03/23/22 07:05 96 Room Air 03/23/22 06:00 96 03/23/22 04:00 96 Room Air 03/23/22 03:03 95 03/23/22 02:39 Room Air 03/23/22 02:39 95 Room Air 03/23/22 02:39 Room Air 03/23/22 02:17 97 Room Air She is awake alert and orient x3 she is in no acute distress. HEENT: 2+ carotid upstrokes Lungs: Clear to auscultation bilaterally no rales rhonchi or wheezing Heart: Regular rate and rhythm no appreciable murmurs rubs or gallops Abdomen: Soft nontender distended positive bowel sounds Extremities: No clubbing cyanosis or edema IMPRESSION: 1. CP secondary to hypertension (SBP 211mm/hg) 2. dyslipidemia 3. Severe three-vessel coronary artery disease post three-vessel CABG 04/2016 (EDOUARD to diagonal, SVG to ramus, SVG to OM2). 4. echo with normal EF, mild MR/AI. 5. Event monitor without symptoms but one episode of SVT lasting 16 beats. 6. LDL has remained elevated and has tried multiple statins with intolerable dariusz lgias. Repatha previously prescribed but did not take. 7. Summer 2020: exercise SPECT which was nondiagnostic due to inability to achieve target HR but patient exercised 8:06 min on standard brittaney protocol and obtained 60% MPHR. At that level of activity no significant ischemia. Small apical anterior/septal fixed perfusion consist with small distal LAD infarct versus artifact. Normal wall motion. Normal LV function. 8. Multiple medication intolerances Her troponins are negative. Her EKG is unchanged and in fact looks better than her prior EKGs in the system. She had an event on Thursday that she had epigastric discomfort and then got diaphoretic and it went away. This discomfort was not her typical anginal symptom. She had discomfort last night with a blood pressure of 211 systolic. With better blood pressure control today she has no symptoms she notes she feels back to her self. I discussed with her if she had an event on Thursday 1 would anticipate her troponins would remain elevated. As I discussed with her she needs adequate antianginal therapy. She is on 50 mg of Toprol and there is no room to increase it further given her relative bradycardia. It sounds like she was on 50 mg twice a day in the past but had excessive bradycardia. I tried to review which medication she is tried is its not well-documented in the outpatient records. She remembered amlodipine she cannot really remember why she might of stopped it. She was on losartan and describes joint aches from it. I discussed that if she needs to be on something that can dilate her coronary arteries and lower her blood pressure and amlodipine is a very good option. I would start 2-1/2 mg daily before she leaves the hospital. She is scheduled to see Dr. Kunz tomorrow in the office and he can adjust her medication regiment accordingly. It does sound like she had some salt loading Thursday night with some potato chips. Other option would be long-acting nitrates as an antianginal. She discussed that in the office today to discuss diuretics which are also reasonable to lower her blood pressure but will not help as an antianginal. Assuming she walks in the hallway and feels okay she can be discharged from my standpoint and see Dr. Kunz tomorrow.
[2022-03-23] MEDS ORDERED: amLODIPine BESYLATE 5 MG TAB PO SCH (12:45)
--- NOTE | 2022-03-23 14:02 | Electrocardiogram Report ---
Test Reason : Blood Pressure : / mmHG Vent. Rate : 072 BPM Atrial Rate : 072 BPM P-R Int : 160 ms QRS Dur : 090 ms QT Int : 410 ms P-R-T Axes : 075 077 025 degrees QTc Int : 448 ms Normal sinus rhythm with sinus arrhythmia Cannot rule out Inferior infarct , age undetermined ST/T changes consider inferolateral ischemia Abnormal ECG When compared with ECG of 19-AUG-2021 03:56, Minimal criteria for Inferior infarct are now Present The anterior ST elevation has resolved and the lateral ST depression has improved Nonspecific T wave abnormality now evident in Inferior leads Confirmed by Zaire Glaser ([id number]) on 03/23/2022 2:01:43 PM Referred By: REFERRED SELF Confirmed By:Zaire Glaser
--- NOTE | 2022-03-23 14:03 | Discharge Summary ---
Date of Service March 23, 2022 Admission HPI Per Admitting Provider Erika Howard is a 76yo female with history of HTN, CAD s/p CABG x 3V presenting with chest pain. Patient had an acute episode of epigastric discomfort on 03/19/22 - severe epigastric pain with nausea and diaphoresis. Her pain ultimately resolved on its own. She contacted Dr. Kunz from Cardiology on 03/21/22 and was instructed to come to the ER if she should experience any new symptoms. She is scheduled to see him on 03/24/22. Patient was doing some work this evening and got dizzy and lightheaded. She laid down and felt some pressure in her chest. Presently feels well with no complaints. ER Course: ASA 324mg Principal Diagnosis Chest pain-noncardiac Uncontrolled HTN Discharge Exam O- Vitals reviewed Gen: [AAOx3, NAD] HEENT: [anicteric sclerae, EOMI] CV: [RRR no mgr nl S1S2] Pulm: [CTAB no wcr] Abd: [+BS soft NT ND no masses or hernias] Ext: [no edema] Skin: [no rashes, warm/dry] Neuro: [full strength throughout] Discharge Data Allergies Allergy/AdvReac Type Severity Reaction Status Date / Time No Known Drug Allergies Allergy Unknown Verified 03/23/22 02:38 Consultations 03/23/22 03:53 ED Decision to Admit Stat 03/23/22 07:33 Consult Cardiology Routine Hospital Course (1) Chest pain: 76yo female with CAD presenting with chest heaviness. Patient had a fairly severe episode of epigastric discomfort and diaphoresis on 03/19 which resolved spontaneously. Episode on day of admission with some substernal chest tightness, pressure and some dizziness with tingling down left arm EKG with inferior q waves that are old Troponin x 3 serially trended and is unremarkable -Telemetry monitoring-NSR and SB 50s -Cardiology consultation appreciated-recommends starting amlodipine 2.5mg daily for improved BP control -Continue home medications, ASA, Metoprolol Suspect acid indigestion and esophageal spasm. She seems to be a high stress sort of personality and has a lot of guests coming in from out of town today, very anxious to get home. AMbulated the taylor without any difficulty. Does not have a gallbladder and LFTs, lipase normal--> do not suspect GB disease -could trial pepcid 20mg po bid OTC prn -start amlodipine 2.5mg po daily and watch for dizziness which she had on amlodipine 5mg in the past -dc to home (2) Hypertension: Blood pressure elevated at 211 systolic on arrival -Continue metoprolol -add amlodipine as above (3) Hypothyroidism: Chronic. TSH within normal limits at 1.727 earlier this year -Continue Synthroid (4) 3-vessel CAD: as above Plan Dispo-dc to home Total Time Total Time Spent Total Time Spent (In Minutes): 35 min Discharge Plan Discharge Items Patient Disposition: Home - Self-Care Reason For Visit: CHEST HEAVINESS Discharge Diagnosis: Chest pain, Uncontrolled hypertension Activity: Resume your previous activity Weightbearing: Full weightbearing Non-emergency contact: Primary Care Provider and Contract Writer Call non-emergency contact if: you have any medication questions, your symptoms worsen and your pain is not controlled Follow-up/Referrals: Aundrea Oswald CRNP [Primary Care Provider] - 03/31/22 10:30 am Baljit Kunz MD [Family Provider] - (Keep your appointment you have scheduled for 03/24.) Diet: Heart Healthy and Low Sodium (2gm) Addtl Attending Provider Instructions: You were admitted to rule out heart attack due to your chest pain. You did not have a heart attack but your blood pressure was quite high. You were started on a new blood pressure medication called amlodipine at a very low dose of 2.5mg daily. There is a possibility that these episodes of pain are coming from acid reflux and spasm of your esophagus. Amlodipine can help with esophageal spasm as well but you could also consider starting on an OTC antacid like famotidine 20mg twice a day as needed. Please follow up with Dr. Kunz as scheduled for tomorrow. Pending Studies at Discharge: No Stand-Alone Forms: [facility], Smoking Cessation Medications and DC Order Prescriptions: New amlodipine [Norvasc] 5 mg Tablet 2.5 mg PO HS Qty: 30 0RF famotidine [Acid Controller] 20 mg tablet 20 mg PO BID PRN (Reason: indigestion) Qty: 60 0RF Rx Instructions: OTC Continued levothyroxine [Synthroid] 100 mcg tablet 100 mcg PO DAILY Qty: 90 3RF Rx Instructions: brand necessary metoprolol succinate 50 mg tablet extended release 24 hr 50 mg PO DAILY Qty: 180 3RF calcium carbonate [Calcium 600] 600 mg calcium (1,500 mg) tablet 600 mg PO QAM multivitamin tablet 1 tab PO QAM cholecalciferol (vitamin D3) 2,000 unit capsule 2,000 units PO QAM coenzyme Q10 100 mg capsule 100 mg PO QAM hydrocortisone [Proctosol HC] 2.5 % cream with perineal applicator 1 applic LA DAILY PRN (Reason: hemorrhoids) Qty: 30 2RF Rx Instructions: use for 5 days at a time as needed aspirin [Karyn Low Dose Aspirin] 81 mg Tablet,Delayed Release (Dr/Ec) 81 mg PO QAM Discharge Orders: Discharge Order (Routine); Ordered 03/23/22 Ordered By: Clary Sierra Admission Data Admit Date/Time: 03/23/22 04:36 Attending Provider: Clary Sierra Admit Provider: Scarlet Qureshi Primary Care Provider: Aundrea Oswald Other Providers: Scarlet Qureshi ; Baljit Kunz Coding Level of Care Code 17908 OBS Care - Discharge Diagnoses Chest pain R07.9 Hypertension I10 Hypertension type: essential hypertension Hypothyroidism E03.9 Hypothyroidism type: unspecified 3-vessel CAD I25.10
--- NOTE | 2022-03-24 07:58 | Electrocardiogram Report ---
Test Reason : Blood Pressure : / mmHG Vent. Rate : 059 BPM Atrial Rate : 059 BPM P-R Int : 180 ms QRS Dur : 086 ms QT Int : 432 ms P-R-T Axes : 057 070 010 degrees QTc Int : 427 ms Sinus bradycardia Minor chronic ST elevation in Septal leads Diffuse Minor Nonspecific ST abnormality Abnormal ECG When compared with ECG of 23-MAR-2022 02:24, No significant change Confirmed by Toeny Alan ([id number]) on 03/24/2022 7:58:21 AM Referred By: REFERRED SELF Confirmed By:Toney Alan
== END 2022-03-23 14:24 | disposition home or self-care (01) ==
LOC: ED 02:12 → 2N 02:12 → SUATTDRO 04:36 → 2N 07:05